=== PATIENT | male | born 1990 | race Asian ===

== ENCOUNTER 2017-08-19 10:02 | Emergency (ER) | payer OTHER ==
[2017-08-19 10:30] VITALS: BP 98/62
--- NOTE | 2017-08-19 10:37 | UC ---
Abdominal Pain Female HPI - HPI Summary HPI Summary: rapid onset abdominal pain, nausea, vomiting at midnight. no diarrhea or urinary symps, no flank pain. cannot pinpoint location of pain when asked denies alcohol or diff diet over past 24-48h and no close contacts with same symps - History of Current Complaint Chief Complaint: UCAbdominalPain Stated Complaint: ABDOMINAL PAIN Time Seen by Provider: 08/19/17 10:31 Hx Obtained From: Patient Onset/Duration: Sudden Onset - started around midnight Timing: Constant Severity Currently: Severe Pain Intensity: 10 Location: Diffuse Radiates: Yes Radiates to: RLQ Character: Cramping, Sharp Aggravating Factor(s): Nothing Alleviating Factor(s): Nothing Associated Signs and Symptoms: Positive: Nausea, Vomiting. Negative: Blood in Stool, Diarrhea PMH/Surg Hx/FS Hx/Imm Hx Previously Healthy: Yes - Surgical History Surgical History: None - Family History Known Family History: Positive: None - Social History Occupation: Student Lives: With Family Alcohol Use: None Substance Use Type: None Smoking Status (MU): Never Smoked Tobacco Review of Systems Constitutional: Negative Skin: Negative Respiratory: Negative Cardiovascular: Negative Gastrointestinal: Abdominal Pain Genitourinary: Negative Musculoskeletal: Negative Neurological: Negative Psychological: Negative All Other Systems Reviewed And Are Negative: Yes Physical Exam Triage Information Reviewed: Yes Appearance: Well-Nourished, Pain Distress - holding abd, moans when moves Vital Signs: Initial Vital Signs Temp 98 F 08/19/17 10:27 Pulse 63 08/19/17 10:27 Resp 16 08/19/17 10:27 BP 98/62 08/19/17 10:27 Pulse Ox 100 08/19/17 10:27 Vital Signs Reviewed: Yes Respiratory Exam: Normal Respiratory: Positive: Lungs clear Cardiovascular Exam: Normal Cardiovascular: Positive: RRR Abdomen Description: Positive: No Organomegaly, McBurney's Point Tenderness, Peritoneal Signs. Negative: CVA Tenderness (R), CVA Tenderness (L), Distended, Splenomegaly Bowel Sounds: Positive: Hypoactive Neurological Exam: Normal Psychological Exam: Normal Skin Exam: Normal Skin: Negative: rashes Abd Pain Female Course/Dx - Differential Dx/Diagnosis Differential Diagnosis: Appendicitis, Diverticulitis, Pancreatitis, Urinary Tract Infection, Other - gastroenteritis Provider Diagnoses: acute abdominal pain Discharge - Sign-Out/Discharge Documenting (check all that apply): Discharge/Admit/Transfer - Discharge Plan Condition: Stable Disposition: HOME Discharge Disposition Comment: patient refuses EMS transport to [facility] but agrees to have friend take him Patient Education Materials: Acute Abdominal Pain (ED) Referrals: No Primary Care Phys,NOPCP [Primary Care Provider] - Additional Instructions: Go directly to [facility] emergency room and tell them you have bad abdominal pain - Billing Disposition and Condition Condition: STABLE Disposition: Home
== END 2017-08-19 10:52 | disposition home or self-care (01) ==
LOC: UCEAST 10:02
DX: R10.84 Generalized abdominal pain (principal); R11.2 Nausea with vomiting, unspecified
CPT/HCPCS: 99201; G0463

== ENCOUNTER 2017-08-19 11:02 | Day surgery (SDC) | payer OTHER ==
[2017-08-19] MEDS ORDERED: Ondansetron INJ* 2 MG/ML VIAL IV ONE (11:15)
[2017-08-19] MEDS ORDERED: NS 0.9% 1000 ML* 1,000 ML IV ONE (11:15)
[2017-08-19] MEDS ORDERED: Morphine VIAL* 4 MG/ML VIAL (1 ml vial) IV PRN (11:21)
[2017-08-19] MEDS ORDERED: NS 0.9% 1000 ML* 1,000 ML IV SCH (11:30)
[2017-08-19] MEDS ORDERED: Ondansetron SYRINGE* 4 MG/2 ML SYRINGE (from 40mg/20ml vial) IV ONE (11:30)
[2017-08-19 11:37] LABS: ABS Basophils 0 10^3/ul (0-0.2); ABS Eosinophils 0 10^3/ul (0-0.6); ABS Lymphocytes 0.7 10^3/ul (1.0-4.8); ABS Monocytes 0.9 10^3/ul (0-0.8); ABS Neutrophils 13.8 10^3/ul (1.5-7.7); ABS Nucleated RBC 0 10^3/ul; Eosinophil % 0.1 % (0-6); Hematocrit 46 % (42-52); Hemoglobin 15.5 g/dl (14.0-18.0); Lymphocyte % 4.6 % (25-47); Mean Corpuscular HGB Conc 34 g/dl (31-36); Mean Corpuscular Hemoglobin 31 pg (27-31); Mean Corpuscular Volume 90 fL (80-94); Mean Platelet Volume 9.7 um3 (7.4-10.4); Nucleated Red Blood Cells % 0; Platelet Count 181 10^3/ul (150-450); Red Cell Distribution Width 14 % (10.5-15); White Blood Count 15.4 10^3/ul (3.5-10.8)
--- NOTE | 2017-08-19 11:48 | RAD ---
INDICATION: Right lower quadrant pain COMPARISON: None TECHNIQUE: Noncontrast axial source images were obtained from the hemidiaphragms to the symphysis pubis. This examination was ordered using a renal stone protocol which is performed without oral or intravenous contrast and therefore has inherent limitations when used to evaluate other intra-abdominal or intrapelvic pathology. Consider conventional contrast enhanced imaging if clinically indicated . Lung bases: The lung bases are clear. Liver: The liver is normal in size. Noncontrast imaging shows no evidence of a hepatic mass or ductal dilatation. Gallbladder: There are no calcified gallstones. There is no evidence of wall thickening or pericholecystic fluid.. Spleen: The spleen is normal in size. The noncontrast CT appearance is normal. Pancreas: Noncontrast imaging shows no pancreatic mass or ductal dilitation. Adrenal glands: No masses are identified. Kidneys/Bladder: There is no evidence of nephrolithiasis or CT evidence of hydronephrosis. Noncontrast imaging shows no evidence of a renal mass. The bladder is unremarkable.. Adenopathy: There is no evidence of intraperitoneal or retroperitoneal adenopathy. Evaluation is limited without oral contrast. Fluid collections: There is a small amount of free fluid in the mesentery of the right lower quadrant. Vessels: The aorta and iliac vessels are normal in caliber. There are no significant atherosclerotic changes. The IVC appears normal Pelvic organs: The prostate and seminal vesicles appear normal GI tract: No gross abnormality upper GI tract on noncontrast evaluation. There is a dilated (13 mm) appendix with periappendiceal inflammatory change and appendicolith consistent with acute appendicitis. No findings of obstruction or free intraperitoneal air Soft tissues: No soft tissue abnormalities of the extraperitoneal abdomen or pelvis are identified. Osseous structures: There are no acute osseous findings. IMPRESSION: CT FINDINGS OF ACUTE APPENDICITIS.
[2017-08-19] MEDS ORDERED: Morphine VIAL* 4 MG/ML VIAL (1 ml vial) IV ONE (11:49)
[2017-08-19] MEDS: Morphine VIAL* 4 MG/ML VIAL (1 ml vial) IV ONE ×2 (11:50→14:10)
[2017-08-19 11:53] LABS: EGFR Non-African American 76.1 (>60)
[2017-08-19] MEDS ORDERED: ceFAZolin 2 GM PREMIX (*) 2 GM/50 ML BAG IVPB ONE (11:55)
--- NOTE | 2017-08-19 13:00 | ED ---
Leonel Boone Natalie, scribed for Rody Araya MD on 08/19/17 at 1122 . Abdominal Pain/Male - HPI Summary HPI Summary: The patient is a 27 y/o M presenting to [facility] c/o sharp RLQ and suprapubic pain starting two nights ago. The pain is rated 10/10 in severity. The pt took medication this morning to no relief. He has had chills and nausea with 2-3 episodes of vomiting PRE CODER. He denies diarrhea. He additionally states that he has had decreased appetite and has last eaten crackers and toast yesterday. He denies any other medical history. - History of Current Complaint Chief Complaint: EDAbdPain Stated Complaint: ABD PAIN Hx Obtained From: Patient Onset/Duration: Sudden Onset, Lasting Days, Still Present Timing: Constant, Lasting Days Severity Initially: Severe Severity Currently: Severe Pain Intensity: 10 Pain Scale Used: 0-10 Numeric Location: Discrete At: RLQ, Suprapubic Radiates: No Character: Sharp Aggravating Factor(s): Nothing Alleviating Factor(s): Nothing Associated Signs And Symptoms: Positive: Decreased Appetite, Nausea, Vomiting, Other - chills. Negative: Diarrhea - Allergies/Home Medications Allergies/Adverse Reactions: Allergies Allergy/AdvReac Type Severity Reaction Status Date / Time No Known Allergies Allergy Verified 08/19/17 11:06 PMH/Surg Hx/FS Hx/Imm Hx Endocrine/Hematology History: Denies: Hx Diabetes Cardiovascular History: Denies: Hx Hypertension Infectious Disease History: No Infectious Disease History: Denies: Traveled Outside the [place] in Last 30 Days - Family History Known Family History: Negative: Cardiac Disease, Hypertension, Diabetes - Social History Alcohol Use: None Substance Use Type: Reports: None Smoking Status (MU): Never Smoked Tobacco Review of Systems Positive: Chills Positive: Abdominal Pain - in RLQ and suprapubic regions, Vomiting, Nausea. Negative: Diarrhea All Other Systems Reviewed And Are Negative: Yes Physical Exam - Summary Physical Exam Summary: Appearance: ILL appearing , mild pallor Skin: Warm Eyes: Normal ENT: Normal Neck: Supple, nontender Respiratory: Clear to auscultation Cardiovascular: Regular rate, regular rhythm. Normal S1, S2. Abdomen: Soft, moderate RLQ tenderness sadia over Mcburney's point, hypoactive bowel sounds Musculoskeletal: Normal, Strength/ROM Intact Neurological: Normal, A&Ox3 Psychiatric: Normal General: No acute distress Triage Information Reviewed: Yes Vital Signs On Initial Exam: Initial Vitals Temp Pulse Resp BP Pulse Ox 98.3 F 64 22 114/56 100 08/19/17 11:04 08/19/17 11:04 08/19/17 11:04 08/19/17 11:04 08/19/17 11:04 Vital Signs Reviewed: Yes Diagnostics - Vital Signs Vital Signs Temp Pulse Resp BP Pulse Ox 08/19/17 11:04 98.3 F 64 22 114/56 100 - Laboratory Lab Results: Lab Results 08/19/17 08/19/17 Range/Units 11:29 11:29 WBC 15.4 H (3.5-10.8) 10^3/ul RBC 5.10 (4.00-5.40) 10^6/ul Hgb 15.5 (14.0-18.0) g/dl Hct 46 (42-52) % MCV 90 (80-94) fL MCH 31 (27-31) pg MCHC 34 (31-36) g/dl RDW 14 (10.5-15) % Plt Count 181 (150-450) 10^3/ul MPV 9.7 (7.4-10.4) um3 Neut % (Auto) 89.5 H (38-83) % Lymph % (Auto) 4.6 L (25-47) % [place] % (Auto) 5.6 (0-7) % Eos % (Auto) 0.1 (0-6) % Baso % (Auto) 0.2 (0-2) % Absolute Neuts (auto) 13.8 H (1.5-7.7) 10^3/ul Absolute Lymphs (auto) 0.7 L (1.0-4.8) 10^3/ul Absolute Monos (auto) 0.9 H (0-0.8) 10^3/ul Absolute Eos (auto) 0 (0-0.6) 10^3/ul Absolute Basos (auto) 0 (0-0.2) 10^3/ul Absolute Nucleated RBC 0 10^3/ul Nucleated RBC % 0 Sodium 134 L (135-145) mmol/L Potassium 3.7 (3.5-5.0) mmol/L Chloride 99 L (101-111) mmol/L Carbon Dioxide 24 (22-32) mmol/L Anion Gap 11 (2-11) mmol/L BUN 10 (6-24) mg/dL Creatinine 1.16 (0.67-1.17) mg/dL Est GFR ( Amer) 92.1 (>60) Est GFR (Non-Af Amer) 76.1 (>60) BUN/Creatinine Ratio 8.6 (8-20) Glucose 123 H (70-100) mg/dL Calcium 10.0 (8.6-10.3) mg/dL Total Bilirubin 1.10 H (0.2-1.0) mg/dL AST 25 (13-39) U/L ALT 15 (7-52) U/L Alkaline Phosphatase 60 (34-104) U/L Total Protein 8.2 (6.4-8.9) g/dL Albumin 4.5 (3.2-5.2) g/dL Globulin 3.7 (2-4) g/dL Albumin/Globulin Ratio 1.2 (1-3) Lipase 22 (11.0-82.0) U/L Result Diagrams: 08/19/17 11:29 08/19/17 11:29 Lab Statement: Any lab studies that have been ordered have been reviewed, and results considered in the medical decision making process. - CT Abd/Pel CT CT Interpretation: Positive (See Comments) - CT findings of acute appendicitis. ED physician has reviewed this report. CT Interpretation Completed By: Radiologist Abdominal Pain Fem Course/Dx - Course Course Of Treatment: Elevated WBC count 15k, + appendicitis on CT abd/pelvis- Dr Amezquita- surgery for consult, pt to go to OR - Diagnoses Provider Diagnoses: Acute appendicitis Discharge - Sign-Out/Discharge Documenting (check all that apply): Discharge/Admit/Transfer - Discharge Plan Condition: Stable Disposition: ADMITTED TO [facility] Discharge Disposition Comment: Dr Amezquita to admit pt - Billing Disposition and Condition Condition: STABLE Disposition: Admitted to [facility] The documentation as recorded by the Leonel molina Natalie accurately reflects the service I personally performed and the decisions made by , Rody Araya MD.
--- NOTE | 2017-08-19 14:34 | HP ---
CC: Dr. Lauro Amezquita HISTORY AND PHYSICAL: DATE OF ADMISSION: 08/19/17. CHIEF COMPLAINT: Abdominal pain. HISTORY OF PRESENT ILLNESS: The patient is a previously healthy 27-year-old male who started with ab dominal pain roughly 36 hours ago which was a kind of central abdominal pain, felt sort of a queasy, hollow, almost hungry sensation, but he really has been able to eat. The pain has gotten worse and i s more in the right lower abdomen today. He denies accident, injury, or trauma. No chronic medical illnesses. No chronic abdominal complaints. No antecedent illness. He is on no medications. He de nies medical allergies. SOCIAL HISTORY: He is a nonsmoker. 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 His Thai is excellent. FAMILY HISTORY: Noncontributory. No bleeding tendencies or anesthesia reactions. REVIEW OF SYSTEMS: Benign. No cardiac or pulmonary issues. No diabetes, hepatitis, or jaundice. N o major GI or history. No neuromuscular or psych issues. No bleeding tendencies or anesthesia re actions. PHYSICAL EXAMINATION GENERAL: He is a well-developed, well-nourished male, consistent with stated age. VITAL SIGNS: Temperature is 98.6, blood pressure 116/60, pulse 66 and regular, respirations 15 unlab ored, O2 saturation 100%. HEENT: Neck is supple without any adenopathy. LUNGS: Clear bilaterally. HEART: Regular. No abnormal sounds. ABDOMEN: Slightly chunky, soft, quite tender in the right lower quadrant with focal rebound tenderne ss. A little bit of referred rebound and Rovsing sign. A little bit of percussion tenderness. No p alpable masses or hernias. Bowel sounds are somewhat diminished. EXTREMITIES: Well perfused and without any edema. SKIN: Warm, well perfused. He is not diaphoretic. He is not jaundiced. DIAGNOSTIC STUDIES/LAB DATA: Laboratory studies reveal white blood count elevated at 15,400 with a left shift. The electrolytes are relatively normal, and his CT scan shows fecalith within the append ix with acute appendicitis. IMPRESSION: A 27-year-old male with signs and symptoms consistent with acute appendicitis. I have discussed this with him and I recommend laparoscopic appendectomy. He understands the procedu re, the rationale, the risks, and expected recovery. I would like to proceed in the fashion outlined and we will do so as the operative schedule allows today. [id number]/[facility] #: [id number]
[2017-08-19] MEDS ORDERED: ceFOXitin 2 GM IVPREMIX* 2 GM/50 ML BAG IVPB ONE ×2 (16:28→20:10)
[2017-08-19] MEDS ORDERED: Dexamethasone IV* 4 MG/ML 1 ML (4 MG) ONE (18:00)
[2017-08-19] MEDS ORDERED: Cisatracurium* 2 MG/ML MDV 5 ML ONE (18:00)
[2017-08-19] MEDS ORDERED: Midazolam* 1 MG/ML 5 ML VIAL (5 MG) ONE (18:00)
[2017-08-19] MEDS ORDERED: Ketorolac INJ* 30 MG/ML 1 ML VIAL ONE (18:00)
[2017-08-19] MEDS ORDERED: Propofol* 10 MG/ML 20 ML BTL IV PUSH ONE (18:00)
[2017-08-19] MEDS ORDERED: Lidocaine 2% PF * 5 ML VIAL ONE (18:00)
[2017-08-19] MEDS ORDERED: Ondansetron ODT TAB* 4 MG ONE (18:00)
[2017-08-19] MEDS ORDERED: fentaNYL* 50 MCG/ML 2 ML VIAL (100 MCG VIAL) ONE (18:00)
[2017-08-19] MEDS ORDERED: Neostigmine Methylsulfate* 2 MG/2 ML SYRINGE ONE (18:05)
[2017-08-19] MEDS ORDERED: Glycopyrrolate IV* 0.2 MG/ML 1 ML VIAL ONE (18:05)
[2017-08-19] MEDS ORDERED: Bupivacaine 0.5% SDV PF* 30ML VIAL ONE (18:51)
[2017-08-19] MEDS ORDERED: Ondansetron INJ* 2 MG/ML VIAL IV PRN (19:07)
[2017-08-19] MEDS ORDERED: Naloxone* 0.4 MG/ML 1 ML VIAL IV PRN (19:07)
[2017-08-19] MEDS ORDERED: fentaNYL* 50 MCG/ML 2 ML VIAL (100 MCG VIAL) IV PRN (19:07)
[2017-08-19] MEDS ORDERED: oxyCODONE/Acetamin 5/325 MG* TAB PO PRN (19:07)
[2017-08-19] MEDS ORDERED: ceFOXitin 2 GM IVPREMIX* 2 GM/50 ML BAG ONE (20:36)
[2017-08-19 21:27] VITALS: BP 131/72
--- NOTE | 2017-08-19 23:02 | OP ---
DATE OF OPERATION: 08/19/17 - [facility] DATE OF : 89 SURGEON: Lauro Amezquita MD REGISTERED NURSE OBSTETRICS: None. ANESTHESIOLOGIST: Dr. Robin. ANESTHESIA: General anesthetic, local infiltration. PRE-OP DIAGNOSIS: Appendicitis. POST-OP DIAGNOSIS: Appendicitis. OPERATIVE PROCEDURE: Laparoscopic appendectomy. DESCRIPTION OF PROCEDURE: The patient was supine on the operating table. After adequate general anesthetic, compression stockings, Maru Hugger warmer and intravenous antibiotics, the abdomen was prepped with antiseptic, draped in a sterile fashion. Local infiltrative anesthesia was administered. Small umbilical incision was created. Blunt port cannula was placed. Insufflation was carried out with carbon dioxide. Additional cannulae, 5 mm left lower abdomen and left mid abdomen was placed through small stab wounds under direct vision. The appendix was suppurative and was adherent to retroperitoneum under the base of the cecum. The terminal ileum was lifted up, cecum was lifted up, the appendix was freed up from some of the suppurative attachments. Mesoappendix was divided using an Endo MIN with a mena load and the base of the appendix with a purple load Endo MIN with a 10-load to complete the staple line. Staple line was excellent. There was no purulence, no spillage. The appendix was placed in a retrieval bag and brought out through the umbilical site. Hemostasis was good. The cannulae were removed. Pneumoperitoneum allowed to escape. Umbilical fascia was closed with 0 Vicryl, skin with 5-0 Vicryl, followed by Steri-Strips. He tolerated the procedure well, was awaken and brought to recovery in good condition. No complications. No drains. Pathologic specimen appendix. Sponge and instrument counts correct. Estimated blood loss 20 mL. [id number]/[facility] #: [id number] [facility]
== END 2017-08-19 21:27 | disposition home or self-care (01) ==
LOC: ED 11:02 → SDS 16:35
PROVIDERS: ATTEND Surgery
DX: K37 Unspecified appendicitis (principal)
CPT/HCPCS: 36415; 74176; 80053; 83690; 85025; 87040; 88304; 99283; A9270-GY; C1776; J0690; J0694; J1100; J1885; J2250; J2270; J2405; J2704; J3010

== ENCOUNTER 2017-08-21 01:55 | Emergency (ER) | payer OTHER ==
[2017-08-21] MEDS ORDERED: Acetaminophen TAB* 325 MG PO ONE (02:11)
[2017-08-21] MEDS: NS 0.9% 1000 ML* 2,000 ML IV ONE ×2 (02:31→04:01)
[2017-08-21 02:34] LABS: ABS Basophils 0 10^3/ul (0-0.2); ABS Eosinophils 0 10^3/ul (0-0.6); ABS Lymphocytes 1.1 10^3/ul (1.0-4.8); ABS Monocytes 0.9 10^3/ul (0-0.8); ABS Nucleated RBC 0 10^3/ul; Eosinophil % 0.1 % (0-6); Hematocrit 41 % (42-52); Hemoglobin 13.8 g/dl (14.0-18.0); Lymphocyte % 12.2 % (25-47); Mean Corpuscular HGB Conc 34 g/dl (31-36); Mean Corpuscular Hemoglobin 30 pg (27-31); Mean Corpuscular Volume 90 fL (80-94); Mean Platelet Volume 9.4 um3 (7.4-10.4); Nucleated Red Blood Cells % 0; Platelet Count 165 10^3/ul (150-450); Red Blood Count 4.55 10^6/ul (4.00-5.40); Red Cell Distribution Width 13 % (10.5-15); Urine Appearance Clear; Urine Blood Negative (Negative); Urine Color Straw; Urine Ketones Trace (Negative); Urine Protein Negative (Negative); Urine Specific Gravity 1.005 (1.010-1.030); Urine Urobilinogen Negative (Negative)
[2017-08-21 02:54] LABS: EGFR Non-African American 83.5 (>60)
[2017-08-21] MEDS ORDERED: Amoxicillin/Clavulanate TAB* 875 MG PO ONE (05:56)
--- NOTE | 2017-08-21 06:09 | ED ---
Keely Boone Emily, scribed for Shari Hooper MD on 08/21/17 at 0213 . HPI Febrile Illness - HPI Summary HPI Summary: This patient is a 27 year old M presenting to [facility] accompanied by friend with a chief complaint of fever that began at 0000 today. Patient reports he status post appendectomy that occurred on 08/19/2017. The patient rates the pain 0/10 in severity. Symptoms aggravated by nothing. Symptoms alleviated by nothing. Patient denies cough and abd pain. - History of Current Complaint Chief Complaint: EDFever Time Seen by Provider: 08/21/17 02:03 Hx Obtained From: Patient Onset/Duration: Started Hours Ago, Still Present Time of Onset: 00:00 Timing: Constant Temperature: 38.3 C Initial Severity: Mild Current Severity: Mild Pain Intensity: 0 Pain Scale Used: 0-10 Numeric Aggravating Factors: Nothing Alleviating Factors: Nothing Associated Signs and Symptoms: Recent Surgery, Other: - Negative cough and abd pain - Allergy/Home Medications Allergies/Adverse Reactions: Allergies Allergy/AdvReac Type Severity Reaction Status Date / Time No Known Allergies Allergy Verified 08/21/17 01:59 PMH/Surg Hx/FS Hx/Imm Hx Previously Healthy: No Endocrine/Hematology History: Denies: Hx Diabetes Cardiovascular History: Denies: Hx Hypertension GI History: Reports: Other GI Disorders - Appendicitis - Surgical History Surgery Procedure, Year, and Place: Appendectomy 08/19/2017 Hx Anesthesia Reactions: No Infectious Disease History: No Infectious Disease History: Denies: Traveled Outside the [place] in Last 30 Days - Family History Known Family History: Negative: Cardiac Disease, Hypertension, Diabetes - Social History Occupation: Student Lives: Dormitory/Roommates Alcohol Use: None Hx Substance Use: No Substance Use Type: Reports: None Hx Tobacco Use: No Smoking Status (MU): Never Smoked Tobacco Review of Systems Positive: Fever Negative: Cough Negative: Abdominal Pain All Other Systems Reviewed And Are Negative: Yes Physical Exam - Summary Physical Exam Summary: VITAL SIGNS: Reviewed. GENERAL: Patient is a well-developed and nourished male who is lying comfortable in the stretcher. Patient is not in any acute respiratory distress. HEAD AND FACE: No signs of trauma. No ecchymosis, hematomas or skull depressions. No sinus tenderness. EYES: PERRLA, EOMI x 2, No injected conjunctiva, no nystagmus. EARS: Hearing grossly intact. Ear canals and tympanic membranes are within normal limits. MOUTH: Oropharynx within normal limits. NECK: Supple, trachea is midline, no adenopathy, no JVD, no carotid bruit, no c- spine tenderness, neck with full ROM. CHEST: Symmetric, no tenderness at palpation LUNGS: Clear to auscultation bilaterally. No wheezing or crackles. CVS: Regular rate and rhythm, S1 and S2 present, no murmurs or gallops appreciated. ABDOMEN: Soft, non-tender. No signs of distention. No rebound no guarding, and no masses palpated. Bowel sounds are normal. Laparoscopic port incisions covered with steri strips. No signs of inflammation EXTREMITIES: FROM in all major joints, no edema, no cyanosis or clubbing. NEURO: Alert and oriented x 3. No acute neurological deficits. Speech is normal and follows commands. SKIN: Dry and warm Triage Information Reviewed: Yes Vital Signs On Initial Exam: Initial Vitals Temp Pulse Resp BP Pulse Ox 101.3 F 109 16 144/79 96 08/21/17 01:56 08/21/17 01:56 08/21/17 01:56 08/21/17 01:56 08/21/17 01:56 Vital Signs Reviewed: Yes Diagnostics - Vital Signs Vital Signs Temp Pulse Resp BP Pulse Ox 08/21/17 01:56 101.3 F 109 16 144/79 96 - Laboratory Lab Results: Lab Results 08/21/17 08/21/17 08/21/17 Range/Units 02:18 02:18 02:18 WBC 9.0 (3.5-10.8) 10^3/ul RBC 4.55 (4.00-5.40) 10^6/ul Hgb 13.8 L (14.0-18.0) g/dl Hct 41 L (42-52) % MCV 90 (80-94) fL MCH 30 (27-31) pg MCHC 34 (31-36) g/dl RDW 13 (10.5-15) % Plt Count 165 (150-450) 10^3/ul MPV 9.4 (7.4-10.4) um3 Neut % (Auto) 77.8 (38-83) % Lymph % (Auto) 12.2 L (25-47) % [place] % (Auto) 9.6 H (0-7) % Eos % (Auto) 0.1 (0-6) % Baso % (Auto) 0.3 (0-2) % Absolute Neuts (auto) 7.0 (1.5-7.7) 10^3/ul Absolute Lymphs (auto) 1.1 (1.0-4.8) 10^3/ul Absolute Monos (auto) 0.9 H (0-0.8) 10^3/ul Absolute Eos (auto) 0 (0-0.6) 10^3/ul Absolute Basos (auto) 0 (0-0.2) 10^3/ul Absolute Nucleated RBC 0 10^3/ul Nucleated RBC % 0 Sodium 136 (135-145) mmol/L Potassium 3.5 (3.5-5.0) mmol/L Chloride 101 (101-111) mmol/L Carbon Dioxide 27 (22-32) mmol/L Anion Gap 8 (2-11) mmol/L BUN 10 (6-24) mg/dL Creatinine 1.07 (0.67-1.17) mg/dL Est GFR ( Amer) 101.1 (>60) Est GFR (Non-Af Amer) 83.5 (>60) BUN/Creatinine Ratio 9.3 (8-20) Glucose 121 H (70-100) mg/dL Lactic Acid (0.5-2.0) mmol/L Calcium 9.0 (8.6-10.3) mg/dL Total Bilirubin 0.50 (0.2-1.0) mg/dL AST 18 (13-39) U/L ALT 17 (7-52) U/L Alkaline Phosphatase 59 (34-104) U/L Troponin I 0.01 (<0.04) ng/mL C-Reactive Protein 118.54 H (<8.01) mg/L Total Protein 6.9 (6.4-8.9) g/dL Albumin 3.9 (3.2-5.2) g/dL Globulin 3.0 (2-4) g/dL Albumin/Globulin Ratio 1.3 (1-3) Urine Color Straw Urine Appearance Clear Urine pH 8.0 (5-9) Ur Specific [place] 1.005 L (1.010-1.030) Urine Protein Negative (Negative) Urine Ketones Trace A (Negative) Urine Blood Negative (Negative) Urine Nitrate Negative (Negative) Urine Bilirubin Negative (Negative) Urine Urobilinogen Negative (Negative) Ur Leukocyte Esterase Negative (Negative) Urine Glucose Negative (Negative) 08/21/17 Range/Units 02:18 WBC (3.5-10.8) 10^3/ul RBC (4.00-5.40) 10^6/ul Hgb (14.0-18.0) g/dl Hct (42-52) % MCV (80-94) fL MCH (27-31) pg MCHC (31-36) g/dl RDW (10.5-15) % Plt Count (150-450) 10^3/ul MPV (7.4-10.4) um3 Neut % (Auto) (38-83) % Lymph % (Auto) (25-47) % [place] % (Auto) (0-7) % Eos % (Auto) (0-6) % Baso % (Auto) (0-2) % Absolute Neuts (auto) (1.5-7.7) 10^3/ul Absolute Lymphs (auto) (1.0-4.8) 10^3/ul Absolute Monos (auto) (0-0.8) 10^3/ul Absolute Eos (auto) (0-0.6) 10^3/ul Absolute Basos (auto) (0-0.2) 10^3/ul Absolute Nucleated RBC 10^3/ul Nucleated RBC % Sodium (135-145) mmol/L Potassium (3.5-5.0) mmol/L Chloride (101-111) mmol/L Carbon Dioxide (22-32) mmol/L Anion Gap (2-11) mmol/L BUN (6-24) mg/dL Creatinine (0.67-1.17) mg/dL Est GFR ( Amer) (>60) Est GFR (Non-Af Amer) (>60) BUN/Creatinine Ratio (8-20) Glucose (70-100) mg/dL Lactic Acid 0.9 (0.5-2.0) mmol/L Calcium (8.6-10.3) mg/dL Total Bilirubin (0.2-1.0) mg/dL AST (13-39) U/L ALT (7-52) U/L Alkaline Phosphatase (34-104) U/L Troponin I (<0.04) ng/mL C-Reactive Protein (<8.01) mg/L Total Protein (6.4-8.9) g/dL Albumin (3.2-5.2) g/dL Globulin (2-4) g/dL Albumin/Globulin Ratio (1-3) Urine Color Urine Appearance Urine pH (5-9) Ur Specific [place] (1.010-1.030) Urine Protein (Negative) Urine Ketones (Negative) Urine Blood (Negative) Urine Nitrate (Negative) Urine Bilirubin (Negative) Urine Urobilinogen (Negative) Ur Leukocyte Esterase (Negative) Urine Glucose (Negative) Result Diagrams: 08/21/17 02:18 08/21/17 02:18 Lab Statement: Any lab studies that have been ordered have been reviewed, and results considered in the medical decision making process. - Radiology CXR Radiology Interpretation Completed By: ED Physician - CXR reveals, per ED physician, no acute disease. Re-Evaluation - Re-Evaluation First Eval Re-Evaluation Time: 05:58 Change: Unchanged Comment: Discussed results and plan of care with the patient Course/Dx - Course Course Of Treatment: This patient is a 27 year old M presenting to [facility] accompanied by friend with a chief complaint of fever that began at 0000 today. Patient reports he is status post appendectomy that occurred on 08/19/2017. Bloodwork and UA obtained. In the ED course the patient was given fluids, Augmentin, and Tylenol.Consult with Dr. Amezquita (surgery) at 0555. He recommends pt be discharged with a prescription for Augmentin. The patient will be discharged with a prescription for Augmentin and with follow up from PCP. The patient is agreeable with this plan. - Diagnoses Provider Diagnoses: Postoperative fever - Provider Notifications Discussed Care Of Patient With: Lauro Amezquita Time Discussed With Above Provider: 05:55 Instructed by Provider To: Other - Consult with Dr. Amezquita (surgery) at 0555. He recommends pt be discharged with a prescription for Augmentin. Discharge - Sign-Out/Discharge Documenting (check all that apply): Discharge/Admit/Transfer - Discharge home - Discharge Plan Condition: Stable Disposition: HOME Prescriptions: Amoxicillin/Clavulanate TAB* [Augmentin TAB 875*] 875 mg PO BID #14 tab Patient Education Materials: Amoxicillin/Clavulanate Potassium (By mouth), Fever in Adults (ED) Referrals: [facility] [place] [facility] [Outside] - 2 Days Additional Instructions: RETURN TO THE EMERGENCY FOR NEW OR WORSENING SYMPTOMS - Billing Disposition and Condition Condition: STABLE Disposition: Home The documentation as recorded by the Keely molina Emily accurately reflects the service I personally performed and the decisions made by me, Shari Hooper MD.
[2017-08-21 06:13] VITALS: BP 123/70
--- NOTE | 2017-08-21 09:38 | RAD ---
Indication: Fever. Single frontal view of the chest performed at 0231 hours was reviewed. No prior study is available for comparison. No mediastinal shift is noted. Heart is of normal size and configuration. Lung morgan appear clear. Trace amount of air under the right hemidiaphragm likely due to recent surgery. IMPRESSION: NO ACTIVE CARDIOPULMONARY DISEASE IS NOTED.
== END 2017-08-21 06:13 | disposition home or self-care (01) ==
LOC: ED 01:55
DX: R50.82 Postprocedural fever (principal); Z90.89 Acquired absence of other organs
CPT/HCPCS: 36415; 71045; 80053; 81003; 83605; 84484; 85025; 86140; 87040; 96360; 99283; A9270-GY